=== PATIENT | female | born 1985 | race Caucasian/White ===

== ENCOUNTER → 2021-11-03 17:26 | Outpatient (CLI) | payer OTHER, SELFPAY | PROVIDERS: Visit Provider Nurse Practitioner | DX: U07.1 COVID-19 (principal) | CPT/HCPCS: C9803; U0003; U0005 ==

== ENCOUNTER 2022-11-16 17:11 | Emergency (ER) | payer OTHER, SELFPAY ==
[2022-11-16 17:30] VITALS: BP 147/86; PULSE 108; RESP 19; TEMP 37; O2SAT 98; BMI 30.9
--- NOTE | 2022-11-16 17:46 | EXP.UTC ---
Discharge Plan Disposition Patient Disposition: Home, Self-Care Condition: Good Prescriptions Prescriptions: New prednisone [prednisone] 20 mg tablet 20 mg PO BID 5 Days Qty: 10 0RF amoxicillin-pot clavulanate 875-125 mg Tablet 1 tab PO Q12H Qty: 20 0RF promethazine-DM 6.25-15 mg/5 mL syrup 5 ml PO Q6H PRN (Reason: cough) Qty: 118 0RF Referrals Follow up/Referrals: Provider,Referral, MD [Primary Care Provider] - See instructions Activity Restrictions/Add. Instructions Additional Instructions/Restrictions: *Monitor Temp, Over the counter Motrin or Tylenol as directed/as needed Tylenol every 4 hours and Motrin every 6 hours (as long as your family doctor has told you that you can take it) for fever or pain. and straight to ER if unable to lower temp less than 101.0 after medication given *Warm salt water gargles may help to soothe the throat *Throat Lozenges? *Warm fluids like tea with honey may help to soothe the throat? *Sleep elevated *Humidifier/Vaporizer Your throat swab was sent for culture. Those results are typically sent to your primary care. Be sure to follow up in 2-3 days with your family doctor/primary care physician if no improvement so they can review those result and treat if necessary. If you don?t have a primary care doctor, I recommend you get one but in the mean time, you will have to return to a walk in clinic Follow up IMMEDIATELY for new or worsening symptoms or no Noticeable improvement over the next 48-72 hours. 911 for difficulty breathing or swallowing Clinical Impressions Clinical Impression: Sinusitis, Bronchitis Instructions Patient Instructions: DI for Sinusitis, Sinusitis, Acute Bronchitis Discharge ED Provider: Leela Langford [facility] General Stated complaint: Sore throat body aches Mode of Arrival: Ambulatory Source of Information: Patient Limitations: No Limitations Time Seen by Provider: 11/16/22 17:46 Description of Symptoms (Recalled from Triage Doc. by RN): PATIENT C/O COUGH, BODY ACHES, SORE THROAT, AND SINUS DRAINAGE/PRESSURE X 4 DAYS HEENT Symptoms (Recalled from RN notes): Yes Resp Symptoms (Recalled from RN notes): Yes Skin Symptoms (Recalled from RN notes): No MS Symptoms (Recalled from RN notes): No Functional Status (Recalled from RN notes): WNL History of Present Illness Provider Complaint: Patient states that she has been having sinus pain and pressure, sore throat, cough and body aches that has got worse over the last 4-5 days States that today she was feeling worse and sinus pressure seemed worse so she came in to get checked out Related Data Previous Rx's Medication Instructions Recorded amoxicillin 875 mg-potassium 1 tab PO Q12H #20 tabs 11/16/22 clavulanate 125 mg tablet prednisone 20 mg tablet 20 mg PO BID 5 days #10 tabs 11/16/22 promethazine-DM 6.25 mg-15 mg/5 mL 5 ml PO Q6H PRN cough #118 mL 11/16/22 oral syrup Allergies Allergy/AdvReac Type Severity Reaction Status Date / Time No Known Allergies Allergy Verified 11/16/22 17:45 Worker's Comp Is this a Worker's Comp case?: No [facility] Disclaimer: The information contained in this section may have been updated after the patient was seen, as this information can be updated by other users. 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 (Updated 11/16/22 @ 18:01 by Leela Langford APRN) Anxiety Depression Kidney stone Surgical History (Updated 11/16/22 @ 17:43 by Liz Wright RN) History of tonsillectomy Social History (Updated 11/16/22 @ 17:44 by Liz Wright RN) Smoking Status: Unknown if ever smoked alcohol intake: current current occupational status: other Travel in the last 8 weeks: None ROS Obtained: Yes All systems reviewed & no additional complaints except as documented and Yes Systems reviewed as appropriate & no additional complaints except as documented Constitutional Constitutional: Reports system reviewed and no additional c
[2022-11-16 17:51] LABS: UTC Influenza A Antigen Negative (Negative); UTC Influenza B Antigen Negative (Negative); UTC Strep Screen (Rapid) Negative (Negative)
[2022-11-16 18:07] VITALS: BP 147/86; PULSE 108; RESP 19; TEMP 37; O2SAT 98
== END 2022-11-16 18:09 | disposition home or self-care (01) ==
PROVIDERS: Emergency Provider Nurse Practitioner
DX: J32.9 Chronic sinusitis, unspecified (principal); J40 Bronchitis, not specified as acute or chronic
CPT/HCPCS: 87804; 87880; 99212; 99213; G0463

== ENCOUNTER 2022-11-23 08:22 | Emergency (ER) | payer OTHER, SELFPAY ==
[2022-11-23 09:25] VITALS: BP 128/84; PULSE 81; RESP 20; TEMP 36.9; O2SAT 100; BMI 29.9
--- NOTE | 2022-11-23 09:30 | EXP.UTC ---
Discharge Plan Disposition Patient Disposition: Home, Self-Care Condition: Good Prescriptions Prescriptions: New azithromycin [Zithromax] 250 mg tablet 250 mg PO UD DOSE PK Qty: 6 0RF Rx Instructions: Take two (2) tablets today, then one (1) tablet days #2 thru #5 benzonatate [benzonatate] 100 mg capsule 100 mg PO TIDP PRN (Reason: Cough) Qty: 30 0RF methylprednisolone 4 mg Tablets,Dose Pack 4 mg PO DIRECTED Qty: 21 0RF Referrals Follow up/Referrals: Provider,Referral, MD [Primary Care Provider] - See instructions Activity Restrictions/Add. Instructions Additional Instructions/Restrictions: Drink plenty of fluids. Take tylenol or ibuprofen for pain or fever. Take the medications as directed. Follow up with your regular doctor. GO TO THE ER FOR ANY WORSENING SYMPTOMS Stop the antibiotic that you are on and start the azithromycin. Clinical Impressions Clinical Impression: Bronchitis Instructions Patient Instructions: DI for Acute Bronchitis Discharge ED Provider: Luis F Gan [facility] General Stated complaint: Persistant cough lung pain Time Seen by Provider: 11/23/22 09:30 History of Present Illness Provider Complaint: She states that for the past 3 days she has had a cough, sinus congestion, low grade fever and malaise. Related Data Previous Rx's Medication Instructions Recorded azithromycin 250 mg tablet 250 mg PO UD DOSE PK #6 tabs 11/23/22 (Zithromax) benzonatate 100 mg capsule 100 mg PO TIDP PRN Cough #30 caps 11/23/22 methylprednisolone 4 mg tablets in 4 mg PO DIRECTED #21 tabs 11/23/22 a dose pack Allergies Allergy/AdvReac Type Severity Reaction Status Date / Time No Known Allergies Allergy Verified 11/23/22 09:57 [facility] Disclaimer: The information contained in this section may have been updated after the patient was seen, as this information can be updated by other users. 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 Anxiety Depression Kidney stone Surgical History History of tonsillectomy Social History Smoking Status: Unknown if ever smoked alcohol intake: current current occupational status: other Travel in the last 8 weeks: None ROS Obtained: Yes All systems reviewed & no additional complaints except as documented Constitutional Constitutional: Reports chills and Reports fever(s) Eyes Eyes: Denies eye discharge ENT Ears, Nose, Mouth, and Throat: Reports as per HPI Cardiovascular Cardiovascular: Denies chest pain Respiratory Respiratory: Denies chest congestion and Reports cough Gastrointestinal Gastrointestingal: Reports nausea; Denies abdominal pain, constipation, cramping, diarrhea or vomiting Musculoskeletal Musculoskeletal: Denies arthralgias Integumentary/Breasts Skin/Breast: Denies rash Neurologic Neurologic: Denies paresthesias Physical Exam General General appearance: alert and in no apparent distress Head Head exam: atraumatic, normocephalic and normal inspection Eye Eye exam: Present normal appearance, PERRL and EOMI ENT ENT exam: Present normal exam, normal oropharynx, mucous membranes moist, TM's normal bilaterally and normal external ear exam Neck Neck exam: Present normal inspection, full ROM and trachea midline; Absent meningismus or lymphadenopathy Chest Chest inspection: Present normal inspection and symmetric chest wall rise; Absent tenderness Respiratory Respiratory exam: Present normal lung sounds bilaterally; Absent respiratory distress Cardiovascular Cardiovascular exam: Present regular rate and normal rhythm; Absent JVD Abdominal Exam Abdominal exam: Present soft and normal bowel sounds; Absent distention, tenderness or guarding Extremities Exam Extremities exam: Present normal inspection, full ROM and normal capillary refill; Absent calf tenderness
--- NOTE | 2022-11-23 09:33 | XR_ITS ---
FINAL REPORT TECHNIQUE: Chest PA & Lateral CLINICAL HISTORY: cough FINDINGS: 2 views of the chest were performed. The heart size is normal. The mediastinum is within normal limits. There is no acute cardiopulmonary process. There are no pleural effusions. There is no pneumothorax. The bony thorax appears intact. IMPRESSION: No acute cardiopulmonary process. Reviewed, Interpreted and Dictated by Doe Rosado MD Transcribed by Gilberto Underwood Authenticated and [facility]
[2022-11-23 10:28] VITALS: BP 128/84; PULSE 81; RESP 20; TEMP 36.9; O2SAT 100
== END 2022-11-23 10:27 | disposition home or self-care (01) ==
PROVIDERS: Emergency Provider Nurse Practitioner Family
DX: J40 Bronchitis, not specified as acute or chronic (principal)
CPT/HCPCS: 71046; 99212; 99213; C9803; G0463; U0003; U0005

== ENCOUNTER 2024-04-23 16:35 | Emergency (ER) | payer OTHER, SELFPAY ==
[2024-04-23 16:50] VITALS: BP 137/78; PULSE 89; RESP 20; TEMP 37; O2SAT 97; BMI 31.4
[2024-04-23 17:09] LABS: UTC Strep Screen (Rapid) Negative (Negative)
--- NOTE | 2024-04-23 17:19 | EXP.UTC ---
Discharge Plan Disposition Patient Disposition: Home, Self-Care Condition: Good Prescriptions Prescriptions: New prednisone 20 mg tablet 20 mg PO BID 5 Days Qty: 10 0RF roxjgpbzqncudde-qogitspvm-TW [Bromfed DM] 2-30-10 mg/5 mL syrup 10 ml PO Q6H PRN (Reason: cold symptoms) Qty: 200 0RF amoxicillin-pot clavulanate 875-125 mg Tablet 1 tab PO Q12H Qty: 20 0RF No Action multivitamin [Multi-Vitamins] Tablet 1 tab PO DAILY loratadine 10 mg Tablet 10 mg PO DAILY Referrals Follow up/Referrals: Provider,Referral, MD [Primary Care Provider] - See instructions Activity Restrictions/Add. Instructions Additional Instructions/Restrictions: Start antibiotic today. Be sure to complete entire prescription even if feeling better Monitor temp. Tylenol every 4 hours as needed and / or ibuprofen every 6 hours as needed ( As long as your primary care physician has told you that it ok to take both. For fever/aches/pains ER if no less than 101 despite Tylenol or Motrin Humidifier/vaporizer or hot steamy shower *Bromfed may cause drowsiness. Know how it effects you (your child) before driving, caring for small child, or sending your child to school. Not other antihistamines/allergy medications while taking bromfed *Start steroid today. Helps with inflammation therefore, cough and wheezing. Follow directions on the package. Reviewed side effects. Patient reports taking them before. Follow up IMMEDIATELY for new or worsening of symptoms OR no noticeable improvement over the next 48-72 hours. 911 immediately for any life threatening symptoms such as chest pain or difficulty breathing Clinical Impressions Clinical Impression: Sinusitis Instructions Patient Instructions: Sinusitis, DI for Sinusitis Discharge ED Provider: Leela Langford [facility] [place] HPI General Stated complaint: cough, sore throat, congestion Mode of Arrival: Ambulatory Source of Information: Patient Limitations: No Limitations Time Seen by Provider: 04/23/24 17:19 Description of Symptoms (Recalled from Triage Doc. by RN): PATIENT C/O SINUS PAIN AND DRAINAGE, COUGH, SORE THROAT AND FATIGUE X 3 DAYS HEENT Symptoms (Recalled from RN notes): Yes Resp Symptoms (Recalled from RN notes): Yes Skin Symptoms (Recalled from RN notes): No MS Symptoms (Recalled from RN notes): No Functional Status (Recalled from RN notes): WNL History of Present Illness Provider Complaint: Patient states that she has been having sore throat, itchy like feeling in ears, sinus congestion and pressure and head congestion States that she has been taking OTC medications but not helped much so today she came in to get checked Related Data Home Medications Medication Instructions Recorded Confirmed loratadine 10 mg tablet 10 mg PO DAILY 04/23/24 04/23/24 multivitamin 1 tab PO DAILY 04/23/24 04/23/24 Previous Rx's Medication Instructions Recorded amoxicillin 875 mg-potassium 1 tab PO Q12H #20 tabs 04/23/24 clavulanate 125 mg tablet rkvyyrbqsiuymtq-qxwnuixdewsslst-JF 10 ml PO Q6H PRN cold symptoms 04/23/24 2 mg-30 mg-10 mg/5 mL oral syrup #200 mL (Bromfed DM) prednisone 20 mg tablet 20 mg PO BID 5 days #10 tabs 04/23/24 Allergies Allergy/AdvReac Type Severity Reaction Status Date / Time No Known Allergies Allergy Verified 11/23/22 09:57 Worker's Comp Is this a Worker's Comp case?: No [facility] Disclaimer: The information contained in this section may have been updated after the patient was seen, as this information can be updated by other users. 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 Anxiety Depression Kidney stone Surgical History History of tonsillectomy Social History Smoking Status: Unknown if ever smoked alcohol intake: current current occupational status: other Travel in the last 8 weeks: None ROS Obtained: Yes All systems reviewed & no additional complaints except as documented and Yes Systems reviewed as appropriate & no additional complaints except as documented Constitutional Constitutional: Reports system reviewed and no additional complaints, except as documented, Reports as per HPI and Reports headache(s) ENT Ears, Nose, Mouth, and Throat: Reports system reviewed and no additional complaints, except as documented, Reports as per HPI, Reports headache(s), Reports sinus pain, Reports sinus pressure and Reports sore throat Cardiovascular Cardiovascular: Reports system reviewed and no additional complaints, except as documented and Reports as per HPI Respiratory Respiratory: Reports system reviewed and no additional complaints, except as documented, Reports as per HPI and Reports cough Gastrointestinal Gastrointestingal: Reports system reviewed and no additional complaints, except as documented and as per HPI Genitourinary Female Genitourinary: Reports system reviewed and no additional complaints, except as documented and Reports as per HPI Neurologic Neurologic: Reports headache(s) Physical Exam General General appearance: alert and in no apparent distress ENT ENT exam: Present mucous membranes moist Expanded ENT Exam TM/Canal exam: Bilateral TM: bulging Nose exam: Present sinus tenderness Throat exam: Present other (Pharyngeal erythema noted with PND) Respiratory Respiratory exam: Present normal lung sounds bilaterally; Absent respiratory distress or wheezes Cardiovascular Cardiovascular exam: Present regular rate and normal rhythm Neurological Exam Neurological exam: Present alert, oriented X3 and normal gait Medical Decision Making Chuck Inquiry Pt receiving controlled substance: No Chuck was queried for this patient: No Vital Signs: 04/23/24 16:50 Temperature 98.6 F Temperature Source Oral Pulse Rate [Left Brachial] 89 Respiratory Rate 20 Blood Pressure [Left Arm] 137/78 Blood Pressure Mean [Left Arm] 97 Blood Pressure Source [Left Arm] Automatic Cuff Blood Pressure Position [Left Arm] Sitting 02 Sat by Pulse Oximetry 97 Oxygen Delivery Method Room Air Lab Data Lab results reviewed: Yes I reviewed the patient's lab results. Lab Results 04/23/24 17:07: Strep Scn Rapid Clinic Negative Orders (Tests/Meds): ORDERS Category Date Time Status Strep Screen Confirmation Stat Micro 04/23/24 17:07 Received
[2024-04-23 17:27] VITALS: BP 137/78; PULSE 89; RESP 20; TEMP 37; O2SAT 97
== END 2024-04-23 17:29 | disposition home or self-care (01) ==
PROVIDERS: Emergency Provider Nurse Practitioner
DX: J01.90 Acute sinusitis, unspecified (principal); R51.9 Headache, unspecified; R07.0 Pain in throat; R09.81 Nasal congestion
CPT/HCPCS: 87880; 99212; 99214; G0463

== ENCOUNTER 2024-05-18 08:56 | Emergency (ER) | payer OTHER, SELFPAY ==
[2024-05-18 09:00] VITALS: BP 129/80; PULSE 74; RESP 20; TEMP 36.8; O2SAT 97; BMI 31.6
[2024-05-18 09:15] VITALS: BP 129/80; PULSE 74; RESP 20; TEMP 36.8; O2SAT 97
--- NOTE | 2024-05-18 09:15 | ED_ITS ---
Discharge Plan Disposition Patient Disposition: Home, Self-Care Condition: Good Prescriptions Prescriptions: New triamcinolone acetonide 0.5 % cream 1 applic topical TID Qty: 15 0RF No Action multivitamin [Multi-Vitamins] Tablet 1 tab PO DAILY Referrals Follow up/Referrals: Provider,Referral, MD [Primary Care Provider] - See instructions Activity Restrictions/Add. Instructions Additional Instructions/Restrictions: Apply cream as directed. Do not use longer than 14 days. Avoid scratching. Clinical Impressions Clinical Impression: Contact dermatitis Qualifiers: Contact dermatitis type: allergic Contact dermatitis trigger: unspecified trigger Qualified Code(s): L23.9 - Allergic contact dermatitis, unspecified cause Instructions Patient Instructions: DI for Contact Dermatitis Print Language Print Language: Sami Discharge ED Provider: Christa Willoughby [facility] General Stated complaint: Rash on L leg Mode of Arrival: Ambulatory Source of Information: Patient Limitations: No Limitations Time Seen by Provider: 05/18/24 09:14 Description of Symptoms (Recalled from Triage Doc. by RN): PATIENT C/O ITCHY, RED RASH TO LEFT ANKLE THAT SHE NOTICED LAST TUESDAY HEENT Symptoms (Recalled from RN notes): No Resp Symptoms (Recalled from RN notes): No Skin Symptoms (Recalled from RN notes): Yes MS Symptoms (Recalled from RN notes): No Functional Status (Recalled from RN notes): WNL History of Present Illness Provider Complaint: Pt reports that she has an area on her left ankle that has been itching. She states that she has been using otc hydrocortisone, but this has not helped. Related Data Home Medications ?Medication ?Instructions ?Recorded ?Confirmed multivitamin 1 tab PO DAILY 04/23/24 05/18/24 Previous Rx's ?Medication ?Instructions ?Recorded triamcinolone acetonide 0.5 % 1 applic topical TID #15 grams 05/18/24 topical cream Allergies Allergy/AdvReac Type Severity Reaction Status Date / Time No Known Allergies Allergy Verified 11/23/22 09:57 Worker's Comp Is this a Worker's Comp case?: No [facility] Disclaimer: The information contained in this section may have been updated after the p atient was seen, as this information can be updated by other users. 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 Anxiety Depression Kidney stone Surgical History History of tonsillectomy Social History Smoking Status: Unknown if ever smoked alcohol intake: current current occupational status: other Travel in the last 8 weeks: None ROS Obtained: Yes All systems reviewed & no additional complaints except as documented Constitutional Constitutional: Reports system reviewed and no additional complaints, except as documented Eyes Eyes: Reports system reviewed and no additional complaints, except as documented ENT Ears, Nose, Mouth, and Throat: Reports system reviewed and no additional complaints, except as documented Cardiovascular Cardiovascular: Reports system reviewed and no additional complaints, except as documented Respiratory Respiratory: Reports system reviewed and no additional complaints, except as documented Gastrointestinal Gastrointestingal: Reports system reviewed and no additional complaints, except as documented Genitourinary Female Genitourinary: Reports system reviewed and no additional complaints, except as documented Musculoskeletal Musculoskeletal: Reports system reviewed and no additional complaints, except as documented Integumentary/Breasts Skin/Breast: Reports system reviewed and no additional complaints, except as documented, Reports as per HPI, Reports pruritus and Reports rash Neurologic Neurologic: Reports system reviewed and no additional complaints, except as documented Endocrine Endocrine: Reports system reviewed and no additional complaints, except as documented Hematologic/Lymphatic Henatologic/Lymphatic: Reports system reviewed and no additional complaints, except as documented Allergic/Immunologic Allergic/Immunologic: Reports system reviewed and no additional complaints, except as documented Physical Exam General General appearance: alert and in no apparent distress Head Head exam: atraumatic and normocephalic Eye Eye exam: Present normal appearance ENT ENT exam: Present normal exam Neck Neck exam: Present normal inspection Chest Chest inspection: Present normal inspection and symmetric chest wall rise Respiratory Respiratory exam: Present normal lung sounds bilaterally Cardiovascular Cardiovascular exam: Present regular rate, normal rhythm and normal heart sounds Abdominal Exam Abdominal exam: Present soft Extremities Exam Extremities exam: Present normal inspection Back Exam Back exam: Present normal inspection Neurological Exam Neurological exam: Present alert and oriented X3 Psychiatric Psychiatric exam: Present normal affect and normal mood Skin Skin exam: Present rash Expanded Skin Exam Type of lesion: Present rash Distribution: LLE Description: Present erythematous and vesicular Lymphatic Lymphatic Findings: no adenopathy Medical Decision Making Chuck Inquiry Pt receiving controlled substance: No Chuck was queried for this patient: No Vital Signs: 05/18/24 09:00 Temperature 98.2 F Temperature Source Oral Pulse Rate [Right Brachial] 74 Respiratory Rate 20 Blood Pressure [Right Arm] 129/80 Blood Pressure Mean [Right Arm] 96 Blood Pressure Source [Right Arm] Automatic Cuff Blood Pressure Position [Right Arm] Sitting 02 Sat by Pulse Oximetry 97 Oxygen Delivery Method Room Air
== END 2024-05-18 09:21 | disposition home or self-care (01) ==
PROVIDERS: Emergency Provider Nurse Practitioner Family
DX: L23.9 Allergic contact dermatitis, unspecified cause (principal)
CPT/HCPCS: 99212; 99214; G0463

== ENCOUNTER 2024-06-06 08:04 | Emergency (ER) | payer OTHER, SELFPAY ==
[2024-06-06 08:15] VITALS: BP 125/80; PULSE 99; RESP 19; TEMP 36.8; O2SAT 97; BMI 31.9
[2024-06-06 08:27] LABS: UTC Strep Screen (Rapid) Negative (Negative)
--- NOTE | 2024-06-06 08:44 | EXP.UTC ---
Discharge Plan Disposition Patient Disposition: Home, Self-Care Condition: Good Prescriptions Prescriptions: New nwjxatvufwvboeb-yncpvhfyf-FI [Bromfed DM] 2-30-10 mg/5 mL syrup 5 - 10 ml PO Q6H PRN (Reason: cold symptoms) Qty: 200 0RF azithromycin [Zithromax Z-Christopher] 250 mg tablet See Rx Instructions .ROUTE .COMPLEX 5 Days Qty: 6 0RF Rx Instructions: For 250 mg dose pack: take 500 mg today (day 1), then 250 mg for 4 days (days 2-5) methylprednisolone [Medrol (Christopher)] 4 mg tablets,dose pack See Rx Instructions .Route .COMPLEX 6 Days Qty: 21 0RF Rx Instructions: taper pack; Referrals Follow up/Referrals: Provider,Referral, MD [Primary Care Provider] - See instructions Activity Restrictions/Add. Instructions Additional Instructions/Restrictions: *Monitor Temp, Over the counter Motrin or Tylenol as directed/as needed Tylenol every 4 hours and Motrin every 6 hours (as long as your family doctor has told you that you can take it) for fever or pain. and straight to ER if unable to lower temp less than 101.0 after medication given *Warm salt water gargles may help to soothe the throat *Throat Lozenges? *Warm fluids like tea with honey may help to soothe the throat? *Sleep elevated *Humidifier/Vaporizer *Bromfed may cause drowsiness. Know how it effects you (your child) before driving, caring for small child, or sending your child to school. Not other antihistamines/allergy medications while taking bromfed Your throat swab was sent for culture. Those results are typically sent to your primary care. Be sure to follow up in 2-3 days with your family doctor/primary care physician if no improvement so they can review those result and treat if necessary. If you don?t have a primary care doctor, I recommend you get one but in the mean time, you will have to return to a walk in clinic Follow up IMMEDIATELY for new or worsening symptoms or no Noticeable improvement over the next 48-72 hours. 911 for difficulty breathing or swallowing You were tested for today for Flu and COVID19 your test result should be back in the next few hours, you may check your results on the [facility] My Health Portal later today and they should be on there Clinical Impressions Clinical Impression: Pharyngitis Qualifiers: Pharyngitis/tonsillitis etiology: unspecified etiology Qualified Code(s): J02.9 - Acute pharyngitis, unspecified Instructions Patient Instructions: DI for Viral Upper Respiratory Infection -- Adult Print Language Print Language: [place] Citizen Discharge ED Provider[place] [facility] [place] General Stated complaint: body aches, head congestion, headache, fever Mode of Arrival: Ambulatory Source of Information: Patient Limitations: No Limitations Time Seen by Provider: 06/06/24 08:44 Description of Symptoms (Recalled from Triage Doc. by RN): PATIENT C/O BODY ACHES, SORE AND SWOLLEN THROAT, AND FEVER THAT STARTED YESTERDAY HEENT Symptoms (Recalled from RN notes): Yes Resp Symptoms (Recalled from RN notes): No Skin Symptoms (Recalled from RN notes): No MS Symptoms (Recalled from RN notes): No Functional Status (Recalled from RN notes): WNL History of Present Illness Provider Complaint: Patient states that she started feeling bad yesterday with body aches and headache, states then she started with sore throat and ran a fever on and off last night States this morning she is still feeling achy all over and her throat is hurting so she came in worried she may have strep throat or something Related Data Previous Rx's ?Medication ?Instructions ?Recorded azithromycin 250 mg tablet See Rx Instructions PO .COMPLEX 5 06/06/24 (Zithromax Z-Christopher) days #6 tabs nvhzoggmobamayg-unmfdzzhwnqwvbv-CG 5 - 10 ml PO Q6H PRN cold symptoms 06/06/24 2 mg-30 mg-10 mg/5 mL oral syrup #200 mL (Bromfed DM) methylprednisolone 4 mg tablets in See Rx Instructions .Route 06/06/24 a dose pack (Medrol (Christopher)) .COMPLEX 6 days #21 tabs Allergies Allergy/AdvReac Type Severity Reaction Status Date / Time No Known Allergies Allergy Verified 11/23/22 09:57 Worker's Comp Is this a Worker's Comp case?: No [facility] Disclaimer: The information contained in this section may have been updated after the patient was seen, as this information can be updated by other users. 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 Anxiety Depression Kidney stone Surgical History History of tonsillectomy Social History Smoking Status: Unknown if ever smoked alcohol intake: current current occupational status: other Travel in the last 8 weeks: None ROS Obtained: Yes All systems reviewed & no additional complaints except as documented and Yes Systems reviewed as appropriate & no additional complaints except as documented Constitutional Constitutional: Reports system reviewed and no additional complaints, except as documented, Reports as per HPI, Reports body ache, Reports chills, Reports fever(s) and Reports headache(s) Eyes Eyes: Reports system reviewed and no additional complaints, except as documented and Reports as per HPI ENT Ears, Nose, Mouth, and Throat: Reports system reviewed and no additional complaints, except as documented, Reports as per HPI, Reports headache(s) and Reports sore throat Cardiovascular Cardiovascular: Reports system reviewed and no additional complaints, except as documented and Reports as per HPI Respiratory Respiratory: Reports system reviewed and no additional complaints, except as documented and Reports as per HPI Gastrointestinal Gastrointestingal: Reports system reviewed and no additional complaints, except as documented and as per HPI Neurologic Neurologic: Reports headache(s) Physical Exam General General appearance: alert and in no apparent distress Expanded ENT Exam Nose exam: Absent sinus tenderness Throat exam: Present other (Pharyngeal erythema noted with PND) Respiratory Respiratory exam: Present normal lung sounds bilaterally; Absent respiratory distress or wheezes Cardiovascular Cardiovascular exam: Present regular rate, normal rhythm and normal heart sounds Neurological Exam Neurological exam: Present alert, oriented X3 and normal gait Medical Decision Making Chuck Inquiry Pt receiving controlled substance: No Chuck was queried for this patient: No Vital Signs: 06/06/24 08:15 Temperature 98.2 F Temperature Source Oral Pulse Rate [Left Brachial] 99 H Respiratory Rate 19 Blood Pressure [Left Arm] 125/80 Blood Pressure Mean [Left Arm] 95 Blood Pressure Source [Left Arm] Automatic Cuff Blood Pressure Position [Left Arm] Sitting 02 Sat by Pulse Oximetry 97 Oxygen Delivery Method Room Air Lab Data Lab results reviewed: Yes I reviewed the patient's lab results. Lab Results 06/06/24 08:21: Strep Scn Rapid Clinic Negative Orders (Tests/Meds): ORDERS Category Date Time Status Strep Screen Confirmation Stat Micro 06/06/24 08:21 Received
[2024-06-06 08:55] VITALS: BP 125/80; PULSE 99; RESP 19; TEMP 36.8; O2SAT 97
[2024-06-06 10:10] LABS: Coronavirus 19, PCR Not Detected (NotDetected); Influenza A, PCR Not Detected (NotDetected); Influenza B, PCR Not Detected (NotDetected)
== END 2024-06-06 09:00 | disposition home or self-care (01) ==
PROVIDERS: Emergency Provider Nurse Practitioner
DX: J02.9 Acute pharyngitis, unspecified (principal); R50.9 Fever, unspecified; R51.9 Headache, unspecified; M79.18 Myalgia, other site
CPT/HCPCS: 87636; 87880; 99212; 99214; G0463

== ENCOUNTER 2024-06-23 13:33 | Emergency (ER) | payer OTHER, SELFPAY ==
[2024-06-23 13:40] VITALS: BP 145/85; PULSE 91; RESP 20; TEMP 36.7; O2SAT 98; BMI 30.7
[2024-06-23 13:58] LABS: UTC Influenza A Antigen Negative (Negative); UTC Influenza B Antigen Negative (Negative)
--- NOTE | 2024-06-23 14:08 | EXP.UTC ---
Discharge Plan Disposition Patient Disposition: Home, Self-Care Condition: Good Prescriptions Prescriptions: New prednisone 20 mg tablet 20 mg PO BID Qty: 10 0RF Referrals Follow up/Referrals: Provider,Referral, MD [Primary Care Provider] - See instructions Activity Restrictions/Add. Instructions Additional Instructions/Restrictions: Tylenol and ibuprofen as needed for pain or fever Humidifier/vaporizer/hot steamy shower Follow-up with primary care this week Follow-up immediately in the ER of the [facility] for new or worsening symptoms or no noticeable improvement over the next 48-72 hours. NO smoking Start steroids today. Helps with inflammation therefore coughing and wheezing. Clinical Impressions Clinical Impression: Bronchitis Instructions Patient Instructions: DI for Acute Bronchitis Print Language Print Language: Scottish Discharge ED Provider: Bindu ([facility] [place] HPI General Stated complaint: chills, bodyaches, cough Mode of Arrival: Ambulatory Source of Information: Patient Limitations: No Limitations Time Seen by Provider: 06/23/24 14:08 Description of Symptoms (Recalled from Triage Doc. by RN): PATIENT C/O BODY ACHES, COUGH AND CHILLS. SHE STATES SHE HAS BEEN SICK FOR APPROX 3 WEEKS AND THOUGHT SHE WAS GETTING BETTER, BUT STATES SHE DEVELOPED BODY ACHES AND CHILLS WITH THE COUGH YESTERDAY HEENT Symptoms (Recalled from RN notes): No Resp Symptoms (Recalled from RN notes): Yes Skin Symptoms (Recalled from RN notes): No MS Symptoms (Recalled from RN notes): No Functional Status (Recalled from RN notes): WNL History of Present Illness Provider Complaint: 38 yr old female presents for c/o chills, body aches, clear drainage and cough. pt states she has been sick for about 3 weeks and thought she was doing better then yesterday started having these symptoms. has been exposed to covid Related Data Previous Rx's ?Medication ?Instructions ?Recorded prednisone 20 mg tablet 20 mg PO BID #10 tabs 06/23/24 Allergies Allergy/AdvReac Type Severity Reaction Status Date / Time No Known Allergies Allergy Verified 11/23/22 09:57 Worker's Comp Is this a Worker's Comp case?: No [facility] Disclaimer: The information contained in this section may have been updated after the patient was seen, as this information can be updated by other users. 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 , [facility] Depression Anxiety Kidney stone Surgical History , [facility] History of tonsillectomy Social History , [facility] Smoking Status: Unknown if ever smoked alcohol intake: current current occupational status: other Travel in the last 8 weeks: None ROS Obtained: Yes All systems reviewed & no additional complaints except as documented Constitutional Constitutional: Reports system reviewed and no additional complaints, except as documented, Reports as per HPI, Reports body ache and Reports chills Eyes Eyes: Reports system reviewed and no additional complaints, except as documented ENT Ears, Nose, Mouth, and Throat: Reports system reviewed and no additional complaints, except as documented and Reports as per HPI Cardiovascular Cardiovascular: Reports system reviewed and no additional complaints, except as documented Respiratory Respiratory: Reports system reviewed and no additional complaints, except as documented, Reports as per HPI and Reports cough Gastrointestinal Gastrointestingal: Reports system reviewed and no additional complaints, except as documented Musculoskeletal Musculoskeletal: Reports system reviewed and no additional complaints, except as documented Integumentary/Breasts Skin/Breast: Reports system reviewed and no additional complaints, except as documented Neurologic Neurologic: Reports system reviewed and no additional complaints, except as documented Endocrine Endocrine: Reports system reviewed and no additional complaints, except as documented Hematologic/Lymphatic Henatologic/Lymphatic: Reports system reviewed and no additional complaints, except as documented Physical Exam General General appearance: alert and in no apparent distress Head Head exam: atraumatic Eye Eye exam: Present normal appearance and PERRL ENT ENT exam: Present mucous membranes moist Expanded ENT Exam TM/Canal exam: Left TM: erythema and Bilateral TM: effusion Respiratory Respiratory exam: Present wheezes Cardiovascular Cardiovascular exam: Present regular rate and normal rhythm Neurological Exam Neurological exam: Present alert and oriented X3 Skin Skin exam: Present warm and intact Medical Decision Making Medical Records Medical records reviewed: Yes I reviewed the patient's medical records. Chuck Inquiry Pt receiving controlled substance: No Chuck was queried for this patient: No Vital Signs: 06/23/24 13:40 Temperature 98.1 F Temperature Source Oral Pulse Rate [Left Brachial] 91 H Respiratory Rate 20 Blood Pressure [Left Arm] 145/85 H Blood Pressure Mean [Left Arm] 105 Blood Pressure Source [Left Arm] Automatic Cuff Blood Pressure Position [Left Arm] Sitting 02 Sat by Pulse Oximetry 98 Oxygen Delivery Method Room Air Lab Data Lab results reviewed: Yes I reviewed the patient's lab results. Lab Results 06/23/24 13:47: Influenza Type A Ag Negative, Influenza Type B Ag Negative
[2024-06-23 14:15] VITALS: BP 145/85; PULSE 91; RESP 20; TEMP 36.7; O2SAT 98
[2024-06-23 14:21] LABS: Coronavirus 19, PCR Not Detected (NotDetected); Influenza A, PCR Not Detected (NotDetected); Influenza B, PCR Not Detected (NotDetected)
== END 2024-06-23 14:17 | disposition home or self-care (01) ==
PROVIDERS: Emergency Provider Nurse Practitioner Family
DX: J20.9 Acute bronchitis, unspecified (principal); R68.83 Chills (without fever); R05.9 Cough, unspecified
CPT/HCPCS: 87636; 87804; 99212; 99214; G0463

== ENCOUNTER 2024-09-24 07:57 | Emergency (ER) | payer OTHER, SELFPAY ==
[2024-09-24 08:14] VITALS: BP 123/77; PULSE 95; RESP 20; TEMP 37.3; O2SAT 97; BMI 30.4
--- NOTE | 2024-09-24 08:17 | EXP.UTC ---
Discharge Plan Disposition Patient Disposition: Home, Self-Care Condition: Good Prescriptions Prescriptions: New yntcemjvxcbldtf-rejtgzhbl-ZE [Bromfed DM] 2-30-10 mg/5 mL syrup 10 ml PO Q6H PRN (Reason: cold symptoms) Qty: 200 0RF Referrals Follow up/Referrals: Provider,Referral, [Primary Care Provider] - See instructions Activity Restrictions/Add. Instructions Additional Instructions/Restrictions: *Monitor Temp, Over the counter Motrin or Tylenol as directed/as needed Tylenol every 4 hours and Motrin every 6 hours (as long as your family doctor has told you that you can take it) for fever or pain. and straight to ER if unable to lower temp less than 101.0 after medication given *Warm salt water gargles may help to soothe the throat *Throat Lozenges? *Warm fluids like tea with honey may help to soothe the throat? *Sleep elevated *Humidifier/Vaporizer *Bromfed may cause drowsiness. Know how it effects you (your child) before driving, caring for small child, or sending your child to school. Not other antihistamines/allergy medications while taking bromfed Your throat swab was sent for culture. Those results are typically sent to your primary care. Be sure to follow up in 2-3 days with your family doctor/primary care physician if no improvement so they can review those result and treat if necessary. If you don?t have a primary care doctor, I recommend you get one but in the mean time, you will have to return to a walk in clinic Follow up IMMEDIATELY for new or worsening symptoms or no Noticeable improvement over the next 48-72 hours. 911 for difficulty breathing or swallowing You were tested for today for COVID19 your test result should be back in the next 24 hours, you may check your results on the [facility] [employer] Health Portal Clinical Impressions Clinical Impression: URI (upper respiratory infection) Qualifiers: URI type: unspecified URI Qualified Code(s): J06.9 - Acute upper respiratory infection, unspecified Instructions Patient Instructions: Sore Throat, Cough, DI for Nasal Congestion Print Language Print Language: Faroese Discharge ED Provider: Leela Langford [facility] [place] HPI General Stated complaint: B/A, fever, sinus pressure Mode of Arrival: Ambulatory Source of Information: Patient Time Seen by Provider: 09/24/24 08:17 Description of Symptoms (Recalled from Triage Doc. by RN): fever, chills, body aches, SINUS PAIN, COUGH, SORE THROAT HEENT Symptoms (Recalled from RN notes): Yes Resp Symptoms (Recalled from RN notes): Yes Skin Symptoms (Recalled from RN notes): No MS Symptoms (Recalled from RN notes): No Functional Status (Recalled from RN notes): WNL History of Present Illness Provider Complaint: Patient states that all weekend she has been having sinus pain and pressure, nasal congestion, cough, body aches, chills and fever States today she was still not feeling any better so she came in to get checked Related Data Previous Rx's ?Medication ?Instructions ?Recorded kjfblpnsoytwxtv-qiqtzsgvimxgzmr-MV 10 ml PO Q6H PRN cold symptoms 09/24/24 2 mg-30 mg-10 mg/5 mL oral syrup #200 mL (Bromfed DM) Allergies Allergy/AdvReac Type Severity Reaction Status Date / Time No Known Allergies Allergy Verified 11/23/22 09:57 Worker's Comp Is this a Worker's Comp case?: No [facility] Disclaimer: The information contained in this section may have been updated after the patient was seen, as this information can be updated by other users. 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) Smoking Status: Unknown if ever smoked alcohol intake: current current occupational status: other Travel in the last 8 weeks: None ROS Obtained: Yes All systems reviewed & no additional complaints except as documented and Yes Systems reviewed as appropriate & no additional complaints except as documented Constitutional Constitutional: Reports system reviewed and no additional complaints, except as documented, Reports as per HPI, Reports body ache, Reports chills and Reports fever(s) ENT Ears, Nose, Mouth, and Throat: Reports system reviewed and no additional complaints, except as documented, Reports as per HPI, Reports nasal congestion, Reports sinus pressure and Reports sore throat Cardiovascular Cardiovascular: Reports system reviewed and no additional complaints, except as documented and Reports as per HPI Respiratory Respiratory: Reports system reviewed and no additional complaints, except as documented, Reports as per HPI and Reports cough Gastrointestinal Gastrointestingal: Reports system reviewed and no additional complaints, except as documented and as per HPI Physical Exam General General appearance: alert and in no apparent distress ENT ENT exam: Present mucous membranes moist Expanded ENT Exam Nose exam: Absent sinus tenderness (reports congestion and pressure like feeling in sinuses) Throat exam: Present other (Pharyngeal erythema noted with PND) Respiratory Respiratory exam: Present normal lung sounds bilaterally; Absent respiratory distress or wheezes Cardiovascular Cardiovascular exam: Present regular rate, normal rhythm and normal heart sounds Abdominal Exam Abdominal exam: Present soft and normal bowel sounds; Absent distention or tenderness Neurological Exam Neurological exam: Present alert, oriented X3 and normal gait Medical Decision Making Medical Records Screening: Per USPSTF and CDC recommendations, given the prevalence of disease in our region, it is our hospital?s policy to screen for HIV and viral Hepatitis for all patients aged 18 and over and those with ongoing risk factors. Chuck Inquiry Pt receiving controlled substance: No Chuck was queried for this patient: No Vital Signs: 09/24/24 08:14 Temperature 99.1 F Temperature Source Oral Pulse Rate [Left Radial] 95 H Respiratory Rate 20 Blood Pressure [Left Arm] 123/77 Blood Pressure Mean [Left Arm] 92 02 Sat by Pulse Oximetry 97 Lab Data Lab results reviewed: Yes I reviewed the patient's lab results.
[2024-09-24 08:18] LABS: UTC Strep Screen (Rapid) Negative (Negative)
[2024-09-24 08:19] LABS: UTC Influenza A Antigen Negative (Negative); UTC Influenza B Antigen Negative (Negative)
[2024-09-24 08:26] VITALS: BP 123/77; PULSE 95; RESP 20; TEMP 37.3
[2024-09-24 08:27] LABS: Influenza A, PCR Not Detected (NotDetected); Influenza B, PCR Not Detected (NotDetected)
[2024-09-24 08:57] LABS: Coronavirus 19, PCR Detected (NotDetected)
== END 2024-09-24 08:27 | disposition home or self-care (01) ==
PROVIDERS: Emergency Provider Nurse Practitioner
DX: J06.9 Acute upper respiratory infection, unspecified (principal); R50.9 Fever, unspecified; R09.81 Nasal congestion; R05.9 Cough, unspecified; R07.0 Pain in throat
CPT/HCPCS: 87636; 87804; 87880; 99212; G0381

== ENCOUNTER 2024-09-28 13:51 | Emergency (ER) | payer OTHER, SELFPAY ==
--- NOTE | 2024-09-28 14:34 | ED_ITS ---
Discharge Plan Disposition Patient Disposition: Home, Self-Care Condition: Good Prescriptions Prescriptions: No Action lovjfeubdwmiczs-zekaoqkrq-XV [Bromfed DM] 2-30-10 mg/5 mL syrup 10 ml PO Q6H PRN (Reason: cold symptoms) Qty: 200 0RF Referrals Follow up/Referrals: Provider,Referral, [Primary Care Provider] - See instructions Activity Restrictions/Add. Instructions Additional Instructions/Restrictions: Drink plenty of fluids. Take tylenol or ibuprofen for pain or fever. Take the medications as directed. Follow up with your regular doctor. GO TO THE ER FOR ANY WORSENING SYMPTOMS Clinical Impressions Clinical Impression: COVID-19 Instructions Patient Instructions: COVID-19, About the COVID-19 Vaccine Print Language Print Language: Latvian Discharge ED Provider: Luis F Gan [facility] [place] [facility] [place] H[place] General Stated complaint: head congestion covid test Time Seen by Provider: 09/28/24 14:34 Related Data Previous Rx's ?Medication ?Instructions ?Recorded elhdehtnvxbpjyd-lpuyldszdemykap-LZ 10 ml PO Q6H PRN cold symptoms 09/24/24 2 mg-30 mg-10 mg/5 mL oral syrup #200 mL (Bromfed DM) Allergies Allergy/AdvReac Type Severity Reaction Status Date / Time No Known Allergies Allergy Verified 11/23/22 09:57 [facility] Disclaimer: The information contained in this section may have been updated after the patient was seen, as this information can be updated by other users. 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) Smoking Status: Unknown if ever smoked alcohol intake: current current occupational status: other Travel in the last 8 weeks: None Have you lived/traveled outside [place] in past 30 days?: No Contact w/someone who lives/traveled outside US past 30 days?: No Exposure to someone with infectious disease in past 14 days?: No Do you have a fever (greater than 100.4 F or 38 C)?: No Have you tested positive for COVID-19: No Exposed to someone with COVID-19 in past 14 days?: No Do you have a sore throat?: No Do you have a cough?: No Do you have any weakness?: No Do you have any diarrhea?: No Are you experiencing any unusual bleeding?: No Do you have any muscle aches/pain?: No Do you have any abdominal pain?: No Are you experiencing loss of taste or smell?: No ROS Obtained: Yes All systems reviewed & no additional complaints except as documented Constitutional Constitutional: Reports chills and Reports fever(s) Eyes Eyes: Denies eye discharge ENT Ears, Nose, Mouth, and Throat: Reports as per HPI Cardiovascular Cardiovascular: Denies chest pain Respiratory Respiratory: Denies chest congestion and Reports cough Gastrointestinal Gastrointestingal: Reports nausea; Denies abdominal pain, constipation, cramping, diarrhea or vomiting Musculoskeletal Musculoskeletal: Denies arthralgias Integumentary/Breasts Skin/Breast: Denies rash Neurologic Neurologic: Denies paresthesias Physical Exam General General appearance: alert and in no apparent distress Eye Eye exam: Present normal appearance, PERRL and EOMI ENT ENT exam: Present mucous membranes moist and normal external ear exam Expanded ENT Exam External ear exam: Present normal external inspection TM/Canal exam: Bilateral TM: erythema and bulging Nose exam: Absent sinus tenderness Nasal speculum exam: Bilateral: normal Mouth exam: Present normal external inspection; Absent drooling Teeth exam: Present normal inspection Throat exam: Present tonsillar erythema and tonsillomegaly Neck Neck exam: Present normal inspection, full ROM and trachea midline; Absent tenderness, lymphadenopathy or thyromegaly Chest Chest inspection: Present normal inspection and symmetric chest wall rise; Absent tenderness or rash Respiratory Respiratory exam: Present normal lung sounds bilaterally; Absent respiratory distress, wheezes, stridor or accessory muscle use Cardiovascular Cardiovascular exam: Present regular rate, normal rhythm and normal heart sounds Abdominal Exam Abdominal exam: Present soft; Absent distention, tenderness, guarding, rebound or rigidity Extremities Exam Extremities exam: Present normal inspection, full ROM and normal capillary refill; Absent tenderness or calf tenderness Back Exam Back exam: Present normal inspection and full ROM; Absent tenderness Neurological Exam Neurological exam: Present alert and oriented X3 Psychiatric Psychiatric exam: Present normal affect and normal mood Skin Skin exam: Present warm, dry, intact and normal color Lymphatic Lymphatic Findings: no adenopathy Medical Decision Making Medical Records Medical records reviewed: No I reviewed the patient's medical records. Screening: Per USPSTF and CDC recommendations, given the prevalence of disease in our region, it is our hospital?s policy to screen for HIV and viral Hepatitis for all patients aged 18 and over and those with ongoing risk factors. Chuck Inquiry Pt receiving controlled substance: No Lab Data Lab results reviewed: Yes I reviewed the patient's lab results.
[2024-09-28 14:35] VITALS: BP 132/84; PULSE 76; RESP 20; TEMP 36.7; O2SAT 97; BMI 30.4
[2024-09-28 14:45] LABS: Influenza A, PCR Not Detected (NotDetected); Influenza B, PCR Not Detected (NotDetected)
[2024-09-28 14:48] VITALS: BP 132/84; PULSE 76; RESP 20; TEMP 36.7
[2024-09-28 17:40] LABS: Coronavirus 19, PCR Detected (NotDetected)
== END 2024-09-28 14:50 | disposition home or self-care (01) ==
PROVIDERS: Emergency Provider Nurse Practitioner Family
DX: U07.1 COVID-19 (principal); R50.9 Fever, unspecified; R05.9 Cough, unspecified; R11.0 Nausea
CPT/HCPCS: 87636; 99212; G0381

== ENCOUNTER 2024-10-01 22:26 | Emergency (ER) | payer OTHER, SELFPAY ==
[2024-10-01 22:27] VITALS: BP 172/93; PULSE 95; RESP 18; TEMP 36.7; O2SAT 100; BMI 30.4
--- NOTE | 2024-10-01 22:30 | ECG_ITS ---
APPROVED REPORT Exam: Resting ECG HR:86 bpm ECG Measurements Heart Rate 86 AXES IA 157 P 68 QRSd 97 QRS 81 QT 348 T 62 QTc 392 Conclusion SINUS RHYTHM NONSPECIFIC T-WAVE ABNORMALITY BORDERLINE ECG UNCONFIRMED REPORT Electronically signed by : STANFORD SOSA, 10/01/2024 23:20:04
--- NOTE | 2024-10-01 22:39 | XR_ITS ---
PROCEDURE INFORMATION: Exam: XR Chest Exam date and time: 10/01/2024 11:11 PM Age: 39 years old Clinical indication: Pain; Chest pressure; Additional info: Cp L side, recent covid TECHNIQUE: Imaging protocol: Radiologic exam of the chest. Views: 2 views. COMPARISON: CR XR CHEST 2V 11/23/2022 9:48 AM FINDINGS: Lungs: Unremarkable. No consolidation. Pleural spaces: Unremarkable. No pleural effusion. No pneumothorax. Heart/Mediastinum: Unremarkable. No cardiomegaly. Bones/joints: Unremarkable. IMPRESSION: No acute findings.
--- NOTE | 2024-10-01 22:39 | ED_ITS ---
Discharge Plan Disposition Patient Disposition: Home, Self-Care Prescriptions Prescriptions: No Action vnjtssrwquvwfrg-exodnclvl-DI [Bromfed DM] 2-30-10 mg/5 mL syrup 10 ml PO Q6H PRN (Reason: cold symptoms) Qty: 200 0RF Referrals Follow up/Referrals: Provider,Referral, [Primary Care Provider] - See instructions Activity Restrictions/Add. Instructions Additional Instructions/Restrictions: Please follow-up with your primary care provider. Please return to the emergency department if you develop any new or worsening symptoms or become concerned for your health. Clinical Impressions Clinical Impression: Chest pain Print Language Print Language: Cymro Discharge ED Provider: Gerald Galeana HPI <Chai Blancas MD - Last Filed: 10/01/24 22:58> General Chief Complaint: Chest Pain Stated Complaint: Chest pain Time Seen by Provider: 10/01/24 22:30 History of Present Illness HPI narrative: Patient is a 39-year-old female with no chronic comorbidities recently diagnosed COVID-19 who presents emergency department for evaluation of chest pain. Onset was acute, within the last 12 hours, substernal left sternal border, intermittent every 8 to 10 seconds feels sharp. It does not radiate through to her back, no abdominal pain reported, she has some lingering cough however it is not as bad as when she had her major symptoms related to her COVID over the last days preceding this. No vomiting reported. Last menstrual period last week. No pertinent surgical history. No other acute complaints at this time. Related Data Previous Rx's ?Medication ?Instructions ?Recorded sohzpvxxnvmqihe-xeefcgalcdzclqy-PE 10 ml PO Q6H PRN cold symptoms 09/24/24 2 mg-30 mg-10 mg/5 mL oral syrup #200 mL (Bromfed DM) Allergies Allergy/AdvReac Type Severity Reaction Status Date / Time No Known Allergies Allergy Verified 11/23/22 09:57 PFSH <Chai Blancas MD - Last Filed: 10/01/24 22:58> PFS Disclaimer: The information contained in this section may have been updated after the patient was seen, as this information can be updated by other users. 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 Social History , [employer]) Smoking Status: Unknown if ever smoked alcohol intake: current current occupational status: other Travel in the last 8 weeks: None Have you lived/traveled outside US in past 30 days?: No Contact w/someone who lives/traveled outside US past 30 days?: No Exposure to someone with infectious disease in past 14 days?: No Do you have a fever (greater than 100.4 F or 38 C)?: No Have you tested positive for COVID-19: No Exposed to someone with COVID-19 in past 14 days?: No Do you have a sore throat?: No Do you have a cough?: No Do you have any weakness?: No Do you have any diarrhea?: No Are you experiencing any unusual bleeding?: No Do you have any muscle aches/pain?: No Do you have any abdominal pain?: No Are you experiencing loss of taste or smell?: No <Chai Blancas MD - Last Filed: 10/01/24 22:58> ROS Obtained: Yes Systems reviewed as appropriate & no additional complaints except as documented Physical Exam <Chai Blancas MD - Last Filed: 10/01/24 22:58> General General appearance: alert and in no apparent distress Head Head exam: atraumatic and normocephalic Eye Eye exam: Present PERRL ENT ENT exam: Present mucous membranes moist Neck Neck exam: Present normal inspection Chest Chest inspection: Present normal inspection and symmetric chest wall rise Respiratory Respiratory exam: Present normal lung sounds bilaterally; Absent respiratory distress, wheezes, stridor, accessory muscle use or prolonged expiratory phase Cardiovascular Cardiovascular exam: Present regular rate and normal rhythm Abdominal Exam Abdominal exam: Present soft; Absent tenderness Extremities Exam Extremities exam: Present normal inspection Neurological Exam Neurological exam: Present alert Psychiatric Psychiatric exam: Present normal affect Skin Skin exam: Present warm and dry HEART Score <Chai Blancas MD - Last Filed: 10/01/24 22:58> HEART Score HEART Score assessment performed?: Yes History (anamnesis): Moderately suspicious ECG: Non-specific disturbance Age: <45 years Risk factors: No known risk factors Troponin: </= normal limit HEART Score: 2 <Gerald Galeana MD - Last Filed: 10/02/24 03:01> HEART Score HEART Score: 2 Critical Care <Chai Blancas MD - Last Filed: 10/01/24 22:58> Critical Care Time Critical Care Time: No Medical Decision Making <Chai Blancas MD - Last Filed: 10/01/24 22:58> Chuck Inquiry Pt receiving controlled substance: No Vital Signs Vital Signs: 10/01/24 22:27 10/02/24 01:59 10/02/24 01:59 Temperature 98.0 F 98.1 F Temperature Source Oral Pulse Rate 78 75 Pulse Rate [Left] 95 H Respiratory Rate 18 16 Blood Pressure 147/71 H Blood Pressure [Right Arm] 172/93 H Blood Pressure Mean [Right Arm] 119 02 Sat by Pulse Oximetry 100 Oxygen Delivery Method Room Air Room Air Lab Data Labs: Lab Results 10/01/24 22:30: WBC 7.4, RBC 4.66, Hgb 13.5, Hct 40.4, MCV 86.8, MCH 29.0, MCHC 33.4, RDW 13.2, Plt Count 317, MPV 7.1 L, Neut % (Auto) 54.6, Lymph % (Auto) 35.7, [place] % (Auto) 5.5, Eos % (Auto) 3.2, Baso % (Auto) 1.1, Neut # (Auto) 4.0, Lymph # (Auto) 2.6, [place] # (Auto) 0.4, Eos # (Auto) 0.2, Baso # (Auto) 0.1, D- Dimer 0.67 H, Sodium 139, Potassium 3.7, Chloride 104, Carbon Dioxide 29, Anion Gap 9.7, BUN 15, Creatinine 0.70, Estimated Creat Clear 156, Estimated GFR 92, Est GFR ( Amer) 112, Glucose 90, Calcium 9.5, Total Bilirubin 0.4, AST 28, ALT 21, Alkaline Phosphatase 60, Troponin I < 0.01, Total Protein 6.9, Albumin 4.3, Globulin 2.6, Albumin/Globulin Ratio 1.7, Serum HCG, Qual Negative 10/02/24 00:12: Troponin I < 0.01 10/02/24 01:25: Troponin I < 0.01 10/01/24 22:30 10/01/24 22:30 Response Orders (Tests/Meds): ED MEDICATIONS Discontinued Medications Generic Name Dose Route Start Last Admin Trade Name Delvin PRN Reason Stop Dose Admin Acetaminophen 1,000 mg 10/01/24 22:38 10/01/24 22:41 Acetaminophen 500mg Tab PO 10/01/24 22:39 1,000 mg ONCE ONE Administration Aspirin 324 mg 10/01/24 22:38 10/01/24 22:41 Aspirin 81mg Chewable Tablet PO 10/01/24 22:39 324 mg ONCE ONE Administration Belladonna Alkaloids 60 ml 10/01/24 22:38 10/01/24 22:41 Belladonna Alkaloids 60 Ml Ml PO 10/01/24 22:39 60 ml ONCE ONE Administration ORDERS Category Date Time Status CXR 2 view (NOT portable) [XR chest 2V] Stat Exams 10/01/24 22:39 Completed CBC w/Auto Diff [Complete Blood Count Auto Diff] Stat Lab 10/01/24 22:30 Completed CMP [Comprehensive Metabolic Panel] Stat Lab 10/01/24 22:30 Completed D-Dimer Stat Lab 10/01/24 22:30 Completed HCG Qualitative, Serum Stat Lab 10/01/24 22:30 Completed HIV (1&2) Antibody Rapid Stat Lab 10/01/24 22:30 Received Hep C Ab with Reflex to RNA Stat Lab 10/01/24 22:30 Received Trop I [Troponin I] Stat Lab 10/01/24 22:30 Completed Trop I [Troponin I] Stat Lab 10/02/24 01:25 Completed Troponin I Q3H Lab 10/02/24 00:12 Completed ECG Data Tracing #1: ECG Narrative: Independently interpreted by me rate is 86, rhythm is regular, axis is normal, no ST elevation in anatomical contiguous leads, nonspecific T wave abnormality inferior leads that does not meet true ST depression criteria. QTc 392. MDM Narrative Medical Decision Narrative: In summary patient is 39-year-old female past medical history described above who presents emergency department for evaluation of chest pain in the setting of recently diagnosed COVID. Patient is hemodynamically stable and nontoxic- appearing upon arrival, afebrile. Patient is hypertensive but does not meet criteria for hypertensive emergency and will need attention on an outpatient basis. Differential diagnosis includes pleurisy, pulmonary embolism, aortic dissection, ACS, among others. Workup will be conducted with hematologic labs, chest x-ray, EKG, serial troponins, D-dimer. Initial inventions include aspirin, Tylenol, GI cocktail. Workup and repeat evaluation largely pending at time of transfer of care to the oncoming physician, Dr. Galeana. <Gerald Galeana MD - Last Filed: 10/02/24 03:01> Vital Signs Vital Signs: 10/01/24 22:27 10/02/24 01:59 10/02/24 01:59 Temperature 98.0 F 98.1 F Temperature Source Oral Pulse Rate 78 75 Pulse Rate [Left] 95 H Respiratory Rate 18 16 Blood Pressure 147/71 H Blood Pressure [Right Arm] 172/93 H Blood Pressure Mean [Right Arm] 119 02 Sat by Pulse Oximetry 100 Oxygen Delivery Method Room Air Room Air Lab Data Labs: Lab Results 10/01/24 22:30: WBC 7.4, RBC 4.66, Hgb 13.5, Hct 40.4, MCV 86.8, MCH 29.0, MCHC 33.4, RDW 13.2, Plt Count 317, MPV 7.1 L, Neut % (Auto) 54.6, Lymph % (Auto) 35.7, [place] % (Auto) 5.5, Eos % (Auto) 3.2, Baso % (Auto) 1.1, Neut # (Auto) 4.0, Lymph # (Auto) 2.6, [place] # (Auto) 0.4, Eos # (Auto) 0.2, Baso # (Auto) 0.1, D- Dimer 0.67 H, Sodium 139, Potassium 3.7, Chloride 104, Carbon Dioxide 29, Anion Gap 9.7, BUN 15, Creatinine 0.70, Estimated Creat Clear 156, Estimated GFR 92, Est GFR ( Amer) 112, Glucose 90, Calcium 9.5, Total Bilirubin 0.4, AST 28, ALT 21, Alkaline Phosphatase 60, Troponin I < 0.01, Total Protein 6.9, Albumin 4.3, Globulin 2.6, Albumin/Globulin Ratio 1.7, Serum HCG, Qual Negative 10/02/24 00:12: Troponin I < 0.01 10/02/24 01:25: Troponin I < 0.01 Response Orders (Tests/Meds): ED MEDICATIONS Discontinued Medications Generic Name Dose Route Start Last Admin Trade Name Delvin PRN Reason Stop Dose Admin Acetaminophen 1,000 mg 10/01/24 22:38 10/01/24 22:41 Acetaminophen 500mg Tab PO 10/01/24 22:39 1,000 mg ONCE ONE Administration Aspirin 324 mg 10/01/24 22:38 10/01/24 22:41 Aspirin 81mg Chewable Tablet PO 10/01/24 22:39 324 mg ONCE ONE Administration Belladonna Alkaloids 60 ml 10/01/24 22:38 10/01/24 22:41 Belladonna Alkaloids 60 Ml Ml PO 10/01/24 22:39 60 ml ONCE ONE Administration ORDERS Category Date Time Status CXR 2 view (NOT portable) [XR chest 2V] Stat Exams 10/01/24 22:39 Completed CBC w/Auto Diff [Complete Blood Count Auto Diff] Stat Lab 10/01/24 22:30 Completed CMP [Comprehensive Metabolic Panel] Stat Lab 10/01/24 22:30 Completed D-Dimer Stat Lab 10/01/24 22:30 Completed HCG Qualitative, Serum Stat Lab 10/01/24 22:30 Completed HIV (1&2) Antibody Rapid Stat Lab 10/01/24 22:30 Received Hep C Ab with Reflex to RNA Stat Lab 10/01/24 22:30 Received Trop I [Troponin I] Stat Lab 10/01/24 22:30 Completed Trop I [Troponin I] Stat Lab 10/02/24 01:25 Completed Troponin I Q3H Lab 10/02/24 00:12 Completed MDM Narrative Medical Decision Narrative: In summary patient is 39-year-old female past medical history described above who presents emergency department for evaluation of chest pain in the setting of recently diagnosed COVID. Patient is hemodynamically stable and nontoxic- appearing upon arrival, afebrile. Patient is hypertensive but does not meet criteria for hypertensive emergency and will need attention on an outpatient basis. Differential diagnosis includes pleurisy, pulmonary embolism, aortic dissection, ACS, among others. Workup will be conducted with hematologic labs, chest x-ray, EKG, serial troponins, D-dimer. Initial inventions include aspirin, Tylenol, GI cocktail. Workup and repeat evaluation largely pending at time of transfer of care to the oncoming physician, Dr. Galeana. Lissett MUNGUIA: I assumed care of the patient at the time of handoff from the prior provider. On reassessment patient bud stable. Laboratory results interpreted by me show negative initial troponin, D-dimer negative by years criteria, chest x-ray interpreted by me shows no evidence of pneumonia, pneumothorax etc. Patient was placed in ED observation status for serial troponins and cardiac monitoring. After period of observation patient remains stable. Sinus rhythm on my interpretation of quality assurance monitor chassis. Repeat troponin returns negative. Low concern for emergent pathology at this time. Given this, patient was deemed appropriate for discharge with outpatient management. She was discharged in stable condition with return precaution.
[2024-10-01] MEDS: BELLADONNA ALKALOIDS 60 ML ML PO (22:41)
[2024-10-01] MEDS: ACETAMINOPHEN 500MG TAB 1000 MG PO (22:41)
[2024-10-01] MEDS: ASPIRIN 81MG CHEWABLE TABLET 324 MG PO (22:41)
[2024-10-01 22:58] LABS: Basophils # 0.1 K/mm3 (0-0.2); Basophils % 1.1 % (0.1-2.0); Eosinophils # 0.2 K/mm3 (0.0-0.4); Eosinophils % 3.2 % (0.1-12.0); Hematocrit 40.4 % (37.0-47.0); Hemoglobin 13.5 g/dL (12.2-16.2); Lymphocytes # 2.6 K/mm3 (0.7-4.5); Lymphocytes % 35.7 % (10-50); Mean Corpuscular HGB Conc 33.4 g/dL (31.8-35.4); Mean Corpuscular Volume 86.8 fl (81-99); Mean Platelet Volume 7.1 fl (7.4-10.4); Monocytes # 0.4 K/mm3 (0.1-1.0); Monocytes % 5.5 % (1.7-9.3); Neutrophils % 54.6 % (37.0-80.0); Platelet Count 317 K/mm3 (142-424); Red Blood Count 4.66 M/mm3 (4.20-5.40); Red Cell Distribution Width 13.2 % (11.5-17.5); White Blood Count 7.4 K/mm3 (4.8-10.8)
[2024-10-01 23:04] LABS: Alanine Aminotransferase 21 U/L (12-78); Albumin Level 4.3 g/dl (3.5-5.0); Albumin/Globulin Ratio 1.7 (1.1-1.8); Alkaline Phosphatase 60 U/L (38-126); Anion Gap 9.7 mEq/L (5-15); Aspartate Amino Transferase 28 U/L (14-36); Bilirubin,Total 0.4 mg/dl (0.2-1.3); Blood Urea Nitrogen 15 mg/dl (7-17); Calcium 9.5 mg/dl (8.4-10.2); Carbon Dioxide 29 mmol/L (22.0-30.0); Chloride 104 mmol/L (98-107); Creatinine Clearance Estimated 156 mL/min (50-200); Estimated Glomerular Filt Rate 92 ml/min (>60); GFR (African American) 112 ML/MIN (>60); Globulin 2.6 g/dL (1.3-3.2); Glucose 90 mg/dl (74-100); Potassium 3.7 mmoL/L (3.5-5.1); Sodium 139 mmol/L (136-145); Total Protein,Serum 6.9 g/dl (6.3-8.2)
[2024-10-01 23:09] LABS: D-Dimer 0.67 ug/mL (0.0-0.5)
[2024-10-01 23:13] LABS: HCG Qualitative, Serum Negative (Negative)
[2024-10-01 23:18] LABS: Troponin I < 0.01 ng/ml (0.00-0.034)
[2024-10-02 00:49] LABS: Troponin I < 0.01 ng/ml (0.00-0.034)
[2024-10-02 01:55] LABS: Troponin I < 0.01 ng/ml (0.00-0.034)
[2024-10-02 01:59] VITALS: BP 147/71; PULSE 75; PULSE 78; RESP 16; TEMP 36.7; O2SAT 96
[2024-10-02 10:57] LABS: HIV Combo NEGATIVE (Negative)
[2024-10-03 06:22] LABS: HCV Ab Non Reactive (Non Reactive)
== END 2024-10-02 02:03 | disposition home or self-care (01) ==
PROVIDERS: Emergency Medicine; Emergency Provider Emergency Medicine
DX: R07.9 Chest pain, unspecified (principal)
CPT/HCPCS: 71046; 80053; 84484; 84703; 85025; 85378; 86803; 87389; 93005; 99284

== ENCOUNTER 2025-09-09 08:58 | Outpatient (CLI) | payer OTHER, SELFPAY ==
[2025-09-09 17:41] LABS: Coronavirus 19, PCR Not Detected (NotDetected); Influenza A, PCR Not Detected (NotDetected); Influenza B, PCR Not Detected (NotDetected)
--- OUTSIDE RECORDS SUMMARY | 2025-09-10 08:34 | XMS_ITS | Clinical Summary ---
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 Not on file 0 11/04/2023 Family and Community Support Answer Sergo e Recorded Help with Day to Day Activities Not on file 11/04/2023 Feeling Lonely or Isolated Not on file 11/04 Educational Attainment Answer Date Marlon rded Speak language other than Urdu at home Not on file 11/04/2023 Want help with school or training Not on file 11/04/2023 Substance Use Answer Date Recorded Used prescription meds for non-medical reasons N ot on file 11/04/2023 Used illegal drugs past 12 months Not on file 11/04/2023 Comments Unknown Sex and Gender Information Value Date Recorded Sex Assigned at Not on file Legal Sex Female 6:18 PM CDT Gender Identity Not on file Sexual Orientation Not on file Plan of Treatment Health Maintenance Due Date Last Done Comments Depression Screening (12+) 1995 Tobacco Cessation Counseling and Screening (12+) 1995 HIV Screening 1998 Hepatitis C Screening 2001 Pap Smear 2004 DTAP/TDAP/TD VACCINES (2 - T d or Tdap) 03/12/2008 03/12/1998 COVID-19 VACCINE (2024-2 6 season) 2025 11/22/2021, 01/22/2021, 12/31/2020 Influenza Vaccine (#1) 2025 Breast Cancer Screening 06/22/2025 06/22/20 23, 08/14/2021 Pneumococcal Vaccine: 0-49 Years Aged Out No longer eligible b ased on patient's age to complete this topic Procedures Procedure Name Priority Date/Time Associated Diagnosis Comments MM DIGITAL MAMMO SCREEN BILATERAL Routine 06/22/2023 10:54 AM EDT Screening mammogram for high-risk patient from Last 3 Months or Most Recently Relevant to Health Maintenance Results * MM digital mammo screen bilateral (06/22/2023 10:54 AM EDT) Anatomical Region Laterality Modality Breast Bilateral Mammography 06/22/2023 4:02 PM EDT Impressions 06/22/2023 4:03 PM EDT FINAL IMPRESSION: ACR BI-RADS 1: Negative. RECOMMENDATIONS: Annual screening mammography. A letter including results and recommendations was sent to the patient. Density notification was included for patients with pattern 3 or 4 breast tissue. Patient information was entered into a reminder system with a target due date for the next mammogram. At our facility, a [place] marker is positioned over a visible skin lesion and a linear marker is used to indicate a scar. A triangular marker is placed on a self reported palpable finding. Note: Mammography does not detect approximately 10-15% of breast cancers. An annual clinical breast exam by the patient's breast care physician and regular monthly self breast exams by the patient are integral parts of breast cancer screening, in addition to annual mammography. A normal mammogram does not completely exclude the presence of breast cancer, especially if there is an abnormal finding on physical exam. When clinically indicated, a biopsy should not be deferred because of a normal mammogram report. D Narrative 06/22/2023 4:03 PM EDT PROCEDURE: Digital screening mammogram. REASON FOR EXAM: Routine screening. FAMILY HISTORY: There is no family history of breast cancer. COMPARISON STUDY: 2020 from [facility] FINDINGS: Craniocaudal and mediolateral oblique images of both breasts were obtained. The breast tissue is heterogeneously dense, which may obscure small masses. There has been no change. There is no evidence of dominant mass, architectural distortion, or suspicious calcifications. The mammogram was interpreted with the benefit of computer aided detection (CAD). Iva Nguyễn MD IM MAMMOGRAPHY ORDERABLES Sima arthur Result from Last 3 Months or Most Recently Relevant to Health Maintenance Insurance [facility] Care Teams Right Of Way Worker Relationship Specialty Start Date End Date Iva Nguyễn MD PCP - General Obstetrics and Gynecology 06/22/23
--- OUTSIDE RECORDS SUMMARY | 2025-09-10 08:34 | XMS_ITS | Patient Health Record ---
Author Organization [facility] Address [address] [place] [address] Care Team Providers Care [place]angersmith Name Role Phone Yanci Elaine [facility] [phone] Reason For Referral No Information Social History Social History Additional Details Category Social Info Options Details Miscellaneous: Caffeine: CAFFEINE USE: 1 Plan Of Treatment No Information Medical (General) History 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 History ICD Code MENSTR FLOW: Medium Abnormal pap Asthma Breast pain Urinary Tract Infections Yeast infections MULTIVITAMINS ORAL CAPSULE MINASTRIN 24 FE 1-20 MG-MCG(24) ORAL TAB LET CHEWABLE SINGULAIR TABLET Surgical History Surgery Date(Month/Year) Tonsillectomy, wisdom teeth
--- OUTSIDE RECORDS SUMMARY | 2025-09-10 08:34 | XMS_ITS | Encounter Summary ---
Author Organization [facility] Address [address] [id number] Care Team Providers Care Cemetery Worker Name Role Phone Talia Perry APRN Primary Care Provider [phone] Encounter Details Date Type Department Care Team (Late st Contact Info) Description 07/12/2025 Results Follow-Up [facility] [address] [place] [id number] Talia Perry APRN [address] [place], [place] [id number] Social History Tobacco Use Types Packs/Day Years Used Date Smoking Tobacco: Never Smokeless Tobacco: Never Alcohol Use Standard Drinks/Week Comments Yes 0 (1 standard drink = 0.6 oz pur e alcohol) PHQ-2 Answer Date Recorded Retired PHQ-9: Brief Depression Severity Measure Score 0 06/07/2023 PHQ-2 Answer Date Recorded Patient Health Questionnaire-2 Score 0 02/01/2025 Comments Unknown Sex and Gender Information Value Date Recorded Sex Assigned at Female 01/31/2025 10:11 PM EDT Legal Sex Female 1:18 PM EDT Gender Identity Not on file Sexual Orientation Not on file documented as of this encounter Plan of Treatment Not on file documented as of this encounter Visit Diagnoses Diagnosis Generalized anxiety disorder with panic attacks- Primary documented in this encounter Care Teams Cemetery Worker Relationship Specialty Start Date End Date Talia Perry APRN [address] [place] [id number] PCP - General Family Medicine 06/07/23 documented as of this encounter
--- OUTSIDE RECORDS SUMMARY | 2025-09-10 08:34 | XMS_ITS | Referral Summary ---
Author Organization [facility] ([place], [place], [place], [place], [place]) Address [address] [place] [address] Care Team Providers Care Dressing Room Attendant Name Role Phone Iva Nguyễn MD Primary Care Provider [phone] Social History Tobacco Use Types Packs/Day Years [...] Date Marlon rded Speak language other than Swedish at home Not on file 11/04/2023 Want [...] Orientation Not on file Plan of Treatment Not on file Procedures Procedure Name Priority Date/Time Associated Diagnosis [...] the next mammogram. At our facility, a [place] marker is positioned over a visible skin [...] of breast cancer. COMPARISON STUDY: 2020 from [facility] FINDINGS: Craniocaudal and mediolateral oblique images of both breasts were obtained. The breast tissue is heterogeneously dense, which may obscure small masses. There has been no change. There is no evidence of dominant mass, architectural distortion, or suspicious calcifications. The mammogram was interpreted with the benefit of computer aided detection (CAD). Iva Nguyễn MD [facility] MAMMOGRAPHY ORDERABLES Sima l Result from Last 3 Months or Most Recently Relevant to Health Maintenance [place] [id number] Care Teams Dressing Room Attendant Relationship Specialty Start Date End Date Iva Nguyễn MD PCP - General Obstetrics and Gynecology 06/22/23
--- OUTSIDE RECORDS SUMMARY | 2025-09-10 08:34 | XMS_ITS | Clinical Summary ---
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 Active magnesium chloride ER [address] tablet Take by mouth Daily. Active ALPRAZolam (XANAX) 0.25 MG tabletIndication s:Generalized anxiety disorder with panic attacks Take 1 tablet by mouth 2 (Two) Times a Day As Needed for Anxiety. 30 tablet 07/05/2025 Active desvenlafaxine (PRISTIQ) 50 MG 24 hr tabletIndication s:Generalized anxiety disorder with panic attacks Take 1 tablet by mouth Daily. 30 tablet 1 07/12/2025 Active Active Problems Problem Noted Date Diagnosed Date Elevated LDL cholesterol level 07/05/2025 Annual physical exam 02/01/2025 Vitamin D deficiency 02/01/2025 Overweight 02/01/2025 Assessment & Plan (02/01/2025 12:34 PM EDT): Patient's (Body mass index is 31.31 kg/m .) indicates that they are overweight with health conditions that include none . Weight is unchanged. BMI is above average; BMI management plan is completed. We discussed portion control and increasing exercise. Fibrocystic breast disease 06/07/2023 Assessment & Plan (02/01/2025 12:39 PM EDT): Patient already undergoing annual mammograms due to family history of breast cancer and abnormal mammograms. Thus far has only been diagnosed with fibrocystic breast disease Assessment & Plan (06/08/2023 12:52 PM EDT): Patient already undergoing annual mammograms due to family history of breast cancer and abnormal mammograms. Thus far has only been diagnosed with fibrocystic breast disease History of campylobacteriosis 06/07/2023 Family history of malignant neoplasm of breast in relative diagnosed when younger than 45 years of age 0211/30/2017 Assessment & Plan (02/01/2025 12:39 PM EDT): Paternal grandmother and maternal aunt. Patient already established with annual mammography. She is having referral to genetic testing today Assessment & Plan (06/08/2023 12:49 PM EDT): Paternal grandmother and maternal aunt. We discussed benefits of referral to genetic counselor at [facility] where she would be referred for BRCA testing. Not interested at this time. Family history of pancreatic cancer 11/30/2017 Assessment & Plan (02/01/2025 12:38 PM EDT): Family history of pancreatic cancer in her mother. Patient declined referral to genetic testing last year but is now ready proceed. Currently asymptomatic without any abdominal issues or skin discoloration. With her lab work today I am going to check amylase, lipase, ALT and AST. Referral placed to [facility] genetic counseling. Assessment & Plan (06/07/2023 11:17 AM EDT): In mother Family history of malignant melanoma 11/30/2017 Assessment & Plan (02/01/2025 12:39 PM EDT): Family history of malignant melanoma in her father. Patient is established with dermatology and gets regular skin cancer screenings. Assessment & Plan (06/07/2023 11:18 AM EDT): father Generalized anxiety disorder with panic attacks 11/30/2017 Assessment & Plan (05/16/2025 3:01 PM EDT): Patient states over the last several months she is experiencing difficulty with sleeping, feelings of heart palpitation, at times shortness of breath. Patient endorses periods of brain fog. She notes in recent weeks work has been very stressful, she is often feeling very overwhelmed, overstimulated and agitated. Patient describes flashes or waves of heat that take over her body at times, feeling as though it originates in the chest. In regards to past mood issues she did participate in grief counseling and have a short period of time of which she was medicated with buspar after the of her parents. Patient does remember in choosing a medication regimen she was unable to tolerate any medication that is antihistamine based. -After some discussion we will initiate lexapro 5mg daily. Patient advised to be aware of any signs of worsening anxiety, also advised medicine will take 4 to 6 weeks to become fully therapeutic. Plans to follow-up in 4 weeks Assessment & Plan (06/08/2023 12:50 PM EDT): Patient with past situational anxiety that responsded well to buspar. No current issues with mood Resolved Problems Problem Noted Date Diagnosed Date Resolved Date Mild intermittent asthma without complication 11/30/19 18 06/08/2023 Encounters Date Type Department Care Team Description 07/12/2025 Results Follow-Up [facility] [address] [place] [address] [place] [phone] Talia Perry APRN 07/05/2025 8:00 AM EDT Office Visit [facility] [address] [place] [address] [place] [phone] Talia Perry, [employer] Anxiety (Primary Dx); Brain fog; Generalized anxiety disorder with panic attacks; Elevated LDL cholesterol level 07/05/2025 Travel from Last 3 Months Immunizations Immunization Administration Dates Next Due Hep B, Adolescent or Pediatric 03/12/1998 Hepatitis B Adolescent High Risk 09/30/19 98,04/29/1998 PPD Test 12/05/2023 Td (TDVAX) 03/12/1998 Tdap 12/05/2023 Family History 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 Relation Name Comments Cancer Father Hyperlipidemia Father Hypertension Father Cancer Mother Diabetes Mother Relation Name Status Comments Father Mother Social History Tobacco Use Types Packs/Day Years [...] on file Sexual Orientation Not on file Last Filed Vital Signs Vital Sign Reading Time Taken Comments Blood Pressure 142/90 07/05/2025 8:11 AM EDT Pulse 103 07/05/2025 8:11 AM EDT Temperature 36.9 C (98.4 F) 07/05/2025 8:11 AM EDT Respiratory Rate 16 07/05/2025 8:11 AM EDT Oxygen Saturation 98% 07/05/2025 8:11 AM EDT Inhaled Oxygen Concentration - - Weight 96.6 kg (213 lb) 07/05/2025 8:11 AM EDT Height 175.3 cm (5' 9 ) 07/05/2025 8:11 AM EDT Body Mass Index 31.45 07/05/2025 8:11 AM EDT Plan of Treatment Health Maintenance Due Date Last Done Comments Annual Gynecologic Pelvic an d Breast Exam 1983 Pneumococcal Vaccine 0-49 (1 of 2 - PCV) 2002 INFLUENZA VACCINE 05/17/2025 06/17/2016 (Sony shahnt-Reported (Performed Externally)) MAMMOGRAM 06/22/2025 06/22/2023, 03/2023, 08/14/2021 ANNUAL PHYSICAL 02/01/2026 02/01/2025, 06/07/2023 PAP SMEAR 04/03/2027 04/03/2024, 10/2016 (Patient-Reported (Performed Externally)) TDAP/TD VACCINES (4 - Td or Tdap) 12/05/2033 12/05/2023, 02/14/2017 (Patient-Reported (Performed Externally)), 03/12/1998 HEPATITIS C SCREENING Completed 06/07/2023 Procedures Procedure Name Priority Date/Time Associated Diagnosis Comments CONV NO TEST INDICATED Routine 07/05/2025 12:00 AM EDT PROGESTERONE Routine 07/05/2025 12:00 AM EDT Brain fog ESTROGENS, TOTAL Routine 07/05/2025 12:0 0 AM EDT Brain fog FSH AND LH Routine 07/05/2025 12:00 AM EDT Brain fog HEPATITIS C ANTIBODY Routine 06/07/2023 11:40 AM EDT Annual physical exam from Last 3 Months or Most Recently Relevant to Health Maintenance Results * No Test Indicated (07/05/2025 12:00 AM EDT) . Comment [facility] Comment:A lavender top tube was received with no test indicated Dear Doctor, Comment [facility] Comment: The requisition we received for the above patient has no test indicated on the request form for one or more of the specimens submitted. The [place] Code of Federal Regulations requires a written and signed request be forwarded to the testing laboratory following the verbal order of a laboratory test. Date: ICD-9/10 Diagnosis Code(s): Physician or Authorized Designee Signature: Your signature confirms your order of the test(s) listed Required test name(s): Required test number(s): Please provide requested information and fax to to expedite testing. 07/05/2025 07/05/2025 Comment:Blood Release to [facility] (AMBULATORY) - 2025 1:07 PM EDT Performed at: [address] [id number] Food Equipment Service Technician: Darrell Burnette PhD, Phone: [phone] Talia Amisha Perry APRN LAB BLOOD ORDERABLES Final Result [facility] (AMBULATORY) [address] [place] [address], [facility] [address] [place] [address], * FSH & LH (07/05/2025 12:00 AM EDT) Pathologist [facility] LH 5.5 mIU/mL [facility] Comment: Adult Female Range Follicular phase 2.4 - 12.6 Ovulation phase 14.0 - 95.6 Luteal phase 1.0 - 11.4 Postmenopausal 7.7 - 58.5 FSH 3.3 mIU/mL [facility] Comment: Adult Female Range Follicular phase 3.5 - 12.5 Ovulation phase 4.7 - 21.5 Luteal phase 1.7 - 7.7 Postmenopausal 25.8 - 134.8 Blood 07/05/2025 07/05/2025 Comment:Blood Release to [facility] (AMBULATORY) - 07/10/2025 6:07 AM EDT Performed at: [address] [id number] Food Equipment Service Technician: Darrell Burnette PhD, Phone: [phone] Talia Perry APRN LAB BLOOD ORDERABLES Final Result Performing Organization Address [facility]/ZIP Co de Phone Number [facility]) [address] [place] [address], [facility] [address] [place] [address], [place] [phone] * Estrogens, Total (07/05/2025 12:00 AM EDT) Estrogen 195 pg/mL [facility] Comment: Prepubertal < 40 Female Cycle: 1-10 Days 16 - 328 11-20 Days 34 - 501 21-30 Days 48 - 350 Post-Menopausal 40 - 244 Blood 07/05/2025 07/05/2025 Comment:Blood Release to [facility] (AMBULATORY) - 07/10/2025 6:07 AM EDT Performed at: [address] [place] [id number] Food Equipment Service Technician: Edith Torres MD, Phone: [phone] Talia Amisha Perry [employer]AY[employer] HELPER LAB BLOOD ORDERABLES Final Result Performing Organization Address [facility] Co de Phone Number [facility] ([facility]) [address] [place] [address], [place] [phone] [facility] [address] [place] [address], [place] [phone] * Progesterone (07/05/2025 12:00 AM EDT) Progesterone 2.7 ng/mL [facility] Comment: Follicular phase 0.1 - 0.9 Luteal phase 1.8 - 23.9 Ovulation phase 0.1 - 12.0 First trimester 11.0 - 44.3 Second trimester 25.4 - 83.3 Third trimester 58.7 - 214.0 Postmenopausal 0.0 - 0.1 Blood 07/05/2025 07/05/2025 Comment:Blood Release to [facility] - 07/10/2025 6:07 AM EDT Performed at: - [facility] [address] [place], [place] [id number] Food Equipment Service Technician: Darrell Burnette PhD, Phone: [phone] Talia Perry APRN LAB BLOOD ORDERABLES Final Result Performing Organization Address [facility]/ZIP Co de Phone Number [facility] (AMBULATORY) [address] [place] [address], [facility] [address] [place] [address], * Hepatitis C Antibody (06/07/2023 11:40 AM EDT) Pathologist [facility] Hep C Virus Ab Non Reactive Non Reactive [facility] Comment: HCV antibody alone does not differentiate between previously resolved infection and active infection. Equivocal and Reactive HCV antibody results should be followed up with an HCV RNA test to support the diagnosis of active HCV infection. Blood Structure of left upper limb / Unknown 06/07/2023 11:40 AM EDT 06/08/2023 Comment:Blood Release to [facility] (AMBULATORY) - 06/08/2023 10:07 AM EDT Performed at: [facility] [address] [place] [id number] Food Equipment Service Technician: Darrell Burnette PhD, Phone: [phone] Talia Perry APRN LAB BLOOD ORDERABLES Final Result Performing Organization Address [facility] Co de Phone Number [facility] ([facility]UL[facility]) [address] [place] [address], [place] [phone] [facility] [address] [place] [address], from Last 3 Months or Most Recently Relevant to Health Maintenance Insurance [employer] Care Teams Senior Sous Chef Relationship Specialty Start Date End Date Talia Perry APRN [address] [id number] PCP - General Family Medicine 06/07/23
== END 2025-09-09 23:59 ==
LOC: LAB.DROPOF 09-10 08:32
PROVIDERS: PCP Nurse Practitioner; Visit Provider Nurse Practitioner
DX: R50.9 Fever, unspecified (principal)
CPT/HCPCS: 87631